=== PATIENT | female | born 1955 | race Caucasian/White ===

== ENCOUNTER 2021-02-24 17:37 | Inpatient (IN) ==
[2021-02-24] MEDS ORDERED: Ondansetron 4 MG/2 ML VIAL IVP PRN (23:26)
[2021-02-24] MEDS ORDERED: Acetaminophen 325 MG TABLET PO PRN (23:26)
[2021-02-24] MEDS ORDERED: Melatonin 3 MG TABLET PO PRN (23:26)
[2021-02-24] MEDS ORDERED: Naloxone 0.4 MG/ML INJ IVP PRN (23:26)
[2021-02-24] MEDS ORDERED: 0.9 % Sodium Chloride 1,000 ML IVC SCH (23:30)
[2021-02-24] MEDS ORDERED: *HR* Heparin 5,000 UNIT/ML VIAL IVP PRN ×2 (23:32)
[2021-02-25] MEDS: Heparin 25,000UNIT/250ML 1/2NS 25,000 UNIT/250 ML IV.SOLN IVC SCH (00:32)
[2021-02-25] MEDS ORDERED: *HR* Dextrose 50 % in Water (Syg) 50 ML SYRINGE IVP PRN (02:37)
[2021-02-25] MEDS ORDERED: Dextrose Gel 15 GM/37.5 ML TUBE PO PRN ×2 (02:37)
[2021-02-25] MEDS ORDERED: D5% in Water 1,000 ML IVC PRN (02:37)
[2021-02-25 02:46] LABS: Basophils % 0.2 %; Eosinophils # 0.1 K/mcL (0.0-0.6); Eosinophils % 0.7 %; Hematocrit 28.4 % (35.3-44.9); Hemoglobin 8.9 g/dL (11.5-15.4); Immature Granulocytes % 1.1 % (0-4); Lymphocytes # 0.8 K/mcL (0.6-4.6); Lymphocytes % 6.7 %; Mean Corpuscular HGB Conc 31.3 g/dL (31.6-35.5); Mean Corpuscular Hemoglobin 30.8 pg (28.0-33.3); Mean Corpuscular Volume 98.3 fL (83.0-100.0); Mean Platelet Volume 10.4 fL (9.4-12.4); Monocytes # 0.7 K/mcL (0.0-1.3); Monocytes % 5.4 %; Neutrophils # 10.6 K/mcL (1.6-8.9); Platelet Count 193 K/mcL (140-400); Red Blood Count 2.89 M/mcL (3.82-4.97); Red Cell Distribution Width 13.5 % (11.5-14.5); Segmented Neutrophils % 85.9 %; White Blood Count 12.3 K/mcL (4.3-11.1)
[2021-02-25 02:49] LABS: INR 1.2; Prothrombin Time 13.6 Seconds (9.4-12.1)
[2021-02-25 02:51] LABS: Activated Partial Thrombo Time 40.4 Seconds (26.0-36.0)
[2021-02-25 02:59] LABS: Calcium 8.7 mg/dL (8.6-10.3); Potassium 4.7 mEq/L (3.5-5.1)
[2021-02-25 03:01] LABS: Albumin/Globulin Ratio 0.9 (1.1-2.2); Bilirubin,Total 0.3 mg/dL (0.3-1.0); Calcium 8.9 mg/dL (8.6-10.3); Globulin 3.3 g/dL (2.4-3.5); Magnesium 1.8 mg/dL (1.6-2.6); Phosphorous 2.7 mg/dL (2.7-4.5); Potassium 4.7 mEq/L (3.5-5.1); Total Protein 6.3 g/dL (6.4-8.9)
[2021-02-25 03:09] LABS: Troponin I 0.33 ng/mL (< 0.04)
[2021-02-25] MEDS ORDERED: Perflutren Lipid Microsphere 1.3 ML in 0.9 % Sodium Chloride 8.7 ML IVP PRN (03:28)
[2021-02-25] MEDS ORDERED: Piperacillin/Tazobactam 3.375 GM in 0.9 % Sodium Chloride Mini Bag 100 ML IVPB SCH (04:00)
[2021-02-25] MEDS: Gabapentin 300 MG CAPSULE PO SCH ×4 (04:11→21:34)
[2021-02-25] MEDS: cefTRIAXone 1,000 MG in 0.9 % Sodium Chloride Mini Bag 100 ML IVPB SCH (05:46)
[2021-02-25] MEDS: Insulin LISPRO 300 UNITS/3 ML VIAL SUBQ SCH ×4 (05:49→21:34)
[2021-02-25] MEDS ORDERED: Ipratropium/Albuterol Neb 3 ML IH PRN (07:31)
[2021-02-25] MEDS: Aspirin 81 MG TAB.CHEW PO SCH (10:31)
[2021-02-25 10:36] LABS: Estimated Average Glucose 292 mg/dl; Hemoglobin A1C 11.8 %
[2021-02-25] MEDS: Doxycycline 100 MG in 0.9 % Sodium Chloride Mini Bag 100 ML IVPB SCH ×2 (12:52→17:36)
[2021-02-25] MEDS: Nystatin POWDER 30 GM BOTTLE TP SCH ×2 (15:17→21:36)
[2021-02-25 17:54] LABS: Bilirubin,Urine Negative (Negative); Blood,Urine Moderate (Negative); Clarity,Urine Clear (Clear); Color,Urine Light-Yellow (Yellow); Glucose,Urine (UA) 30 mg/dL (Normal); Ketones,Urine Negative (Negative); Leukocyte Esterase,Urine Small (Negative); Mucus,Urine Few per lpf (None-Few); Nitrite,Urine Negative (Negative); Protein,Urine 30 mg/dL (Neg-Trace); RBC,Urine TNTC per hpf (0-3); Specific Gravity,Urine 1.014 (1.010-1.025); Urobilinogen,Urine Normal (Normal); WBC,Urine 15-30 per hpf (0-3)
[2021-02-26] MEDS: Heparin 25,000UNIT/250ML 1/2NS 25,000 UNIT/250 ML IV.SOLN IVC SCH (00:22)
[2021-02-26 01:26] LABS: Basophils # 0.1 K/mcL (0.0-0.2); Basophils % 0.5 %; Eosinophils # 0.2 K/mcL (0.0-0.6); Eosinophils % 1.5 %; Hematocrit 30.1 % (35.3-44.9); Hemoglobin 9.5 g/dL (11.5-15.4); Immature Granulocytes % 1.1 % (0-4); Lymphocytes # 1.3 K/mcL (0.6-4.6); Lymphocytes % 12.6 %; Mean Corpuscular HGB Conc 31.6 g/dL (31.6-35.5); Mean Corpuscular Hemoglobin 30.7 pg (28.0-33.3); Mean Corpuscular Volume 97.4 fL (83.0-100.0); Mean Platelet Volume 10.4 fL (9.4-12.4); Monocytes # 0.8 K/mcL (0.0-1.3); Monocytes % 7.6 %; Neutrophils # 7.7 K/mcL (1.6-8.9); Platelet Count 203 K/mcL (140-400); Red Blood Count 3.09 M/mcL (3.82-4.97); Red Cell Distribution Width 13.5 % (11.5-14.5); Segmented Neutrophils % 76.7 %; White Blood Count 10.1 K/mcL (4.3-11.1)
[2021-02-26 01:34] LABS: Chol/HDL Ratio 4.1 (0-4.9)
[2021-02-26 01:36] LABS: Calcium 8.7 mg/dL (8.6-10.3); Potassium 4.3 mEq/L (3.5-5.1)
[2021-02-26] MEDS: cefTRIAXone 1,000 MG in 0.9 % Sodium Chloride Mini Bag 100 ML IVPB SCH (05:03)
[2021-02-26] MEDS: Doxycycline 100 MG in 0.9 % Sodium Chloride Mini Bag 100 ML IVPB SCH ×2 (05:03→17:54)
[2021-02-26] MEDS: Gabapentin 300 MG CAPSULE PO SCH ×3 (08:27→21:59)
[2021-02-26] MEDS: Aspirin 81 MG TAB.CHEW PO SCH (08:27)
[2021-02-26] MEDS: Nystatin POWDER 30 GM BOTTLE TP SCH ×2 (08:28→22:01)
[2021-02-26] MEDS: Insulin LISPRO 300 UNITS/3 ML VIAL SUBQ SCH ×4 (08:32→21:59)
[2021-02-26] MEDS: lisinopriL 20 MG TABLET PO SCH (17:54)
[2021-02-27] MEDS: cefTRIAXone 1,000 MG in 0.9 % Sodium Chloride Mini Bag 100 ML IVPB SCH (05:07)
[2021-02-27 05:15] LABS: Basophils # 0.1 K/mcL (0.0-0.2); Basophils % 0.6 %; Eosinophils # 0.2 K/mcL (0.0-0.6); Eosinophils % 2.1 %; Hematocrit 28.4 % (35.3-44.9); Hemoglobin 9.3 g/dL (11.5-15.4); Immature Granulocytes % 2.1 % (0-4); Lymphocytes # 1.2 K/mcL (0.6-4.6); Lymphocytes % 14.4 %; Mean Corpuscular HGB Conc 32.7 g/dL (31.6-35.5); Mean Corpuscular Hemoglobin 31.6 pg (28.0-33.3); Mean Corpuscular Volume 96.6 fL (83.0-100.0); Mean Platelet Volume 10.2 fL (9.4-12.4); Monocytes # 0.8 K/mcL (0.0-1.3); Neutrophils # 5.8 K/mcL (1.6-8.9); Nucleated Red Blood Cells 0.2 /100 WBC (0); Platelet Count 187 K/mcL (140-400); Red Blood Count 2.94 M/mcL (3.82-4.97); Red Cell Distribution Width 13.6 % (11.5-14.5); Segmented Neutrophils % 70.8 %; White Blood Count 8.2 K/mcL (4.3-11.1)
[2021-02-27 05:32] LABS: Potassium 4.1 mEq/L (3.5-5.1)
[2021-02-27] MEDS: Doxycycline 100 MG in 0.9 % Sodium Chloride Mini Bag 100 ML IVPB SCH (05:58)
[2021-02-27] MEDS: Insulin LISPRO 300 UNITS/3 ML VIAL SUBQ SCH ×2 (09:26→13:22)
[2021-02-27] MEDS: Gabapentin 300 MG CAPSULE PO SCH (09:27)
[2021-02-27] MEDS: lisinopriL 20 MG TABLET PO SCH (09:27)
[2021-02-27] MEDS: Nystatin POWDER 30 GM BOTTLE TP SCH (09:27)
[2021-02-27] MEDS: Aspirin 81 MG TAB.CHEW PO SCH (09:27)
[2021-02-27 11:57] VITALS: BP 166/77; PULSE 72; TEMP 98.3; O2SAT 97
[2021-02-27] MEDS ORDERED: Moderna Covid-19 Vaccine 100MCG/0.5mL IM ONE (12:06)
== END 2021-02-27 17:00 | disposition home or self-care (01) | DRG 871 ==
LOC: 3ANU → SUATTDRO 23:26
PROVIDERS: ADMIT Internal Medicine; ATTEND Internal Medicine

== ENCOUNTER 2021-06-08 12:13 | Observation (INO) ==
[2021-06-08 13:32] LABS: Basophils # 0.1 K/mcL (0.0-0.2); Basophils % 0.9 %; Eosinophils # 0.1 K/mcL (0.0-0.6); Eosinophils % 1.3 %; Hematocrit 39.6 % (35.3-44.9); Hemoglobin 12.7 g/dL (11.5-15.4); Immature Granulocytes % 1.4 % (0-4); Lymphocytes # 1.4 K/mcL (0.6-4.6); Lymphocytes % 15.4 %; Mean Corpuscular HGB Conc 32.1 g/dL (31.6-35.5); Mean Corpuscular Volume 93.4 fL (83.0-100.0); Mean Platelet Volume 9.6 fL (9.4-12.4); Monocytes # 0.5 K/mcL (0.0-1.3); Monocytes % 5.7 %; Neutrophils # 6.8 K/mcL (1.6-8.9); Platelet Count 415 K/mcL (140-400); Red Blood Count 4.24 M/mcL (3.82-4.97); Red Cell Distribution Width 12.6 % (11.5-14.5); Segmented Neutrophils % 75.3 %; White Blood Count 9.1 K/mcL (4.3-11.1)
[2021-06-08 13:48] LABS: Albumin 3.9 g/dL (3.5-5.7); Albumin/Globulin Ratio 0.8 (1.1-2.2); Bilirubin,Direct 0.2 mg/dL (0.0-0.2); Bilirubin,Indirect 0.3 mg/dL (0.0-1.0); Bilirubin,Total 0.5 mg/dL (0.3-1.0); Calcium 10.4 mg/dL (8.6-10.3); Globulin 4.7 g/dL (2.4-3.5); Potassium 4.7 mEq/L (3.5-5.1); Total Protein 8.6 g/dL (6.4-8.9)
[2021-06-08] MEDS ORDERED: 0.9 % Sodium Chloride 1,000 ML IVC ONE (15:52)
[2021-06-08] MEDS ORDERED: Ondansetron 4 MG/2 ML VIAL IVP ONE ×2 (15:52→17:14)
[2021-06-08 16:56] LABS: Influenza A PCR Negative (Negative); Influenza B PCR Negative (Negative); Resp. Syncytial Virus PCR Negative (Negative)
[2021-06-08 16:57] LABS: SARS-CoV-2 by PCR (In House) Negative (Negative)
[2021-06-08] MEDS ORDERED: *HR* FentaNYL (PF) 100 MCG/2 ML VIAL IVP ONE (17:15)
[2021-06-08] MEDS ORDERED: Isovue-370 500 ML BOTTLE IVP ONE (17:23)
[2021-06-08] MEDS ORDERED: *HR* Dextrose 50 % in Water (Syg) 50 ML SYRINGE IVP PRN (21:16)
[2021-06-08] MEDS ORDERED: Dextrose Gel 15 GM/37.5 ML TUBE PO PRN ×2 (21:16)
[2021-06-08] MEDS ORDERED: D5% in Water 1,000 ML IVC PRN (21:16)
[2021-06-08] MEDS ORDERED: Naloxone 0.4 MG/ML INJ IVP PRN (21:20)
[2021-06-08] MEDS: 0.9 % Sodium Chloride 1,000 ML IVC SCH (23:57)
[2021-06-08] MEDS: Insulin LISPRO 300 UNITS/3 ML VIAL SUBQ SCH (23:59)
[2021-06-09] MEDS: Prochlorperazine 10 MG/2 ML VIAL IVP PRN ×2 (00:01→14:45)
[2021-06-09 01:04] LABS: Bilirubin,Urine Negative (Negative); Blood,Urine Negative (Negative); Clarity,Urine Clear (Clear); Color,Urine Light-Yellow (Yellow); Glucose,Urine (UA) 300 mg/dL (Normal); Ketones,Urine Negative (Negative); Leukocyte Esterase,Urine Large (Negative); Mucus,Urine Few per lpf (None-Few); Nitrite,Urine Negative (Negative); PH,Urine 5.5 pH Units (5.0-8.0); Protein,Urine Trace mg/dL (Neg-Trace); Specific Gravity,Urine > 1.030 (1.010-1.025); Squamous Epithelial Cell,Urine Moderate per hpf (None-Few); Urobilinogen,Urine Normal (Normal); WBC,Urine 50-100 per hpf (0-3)
[2021-06-09] MEDS: Insulin LISPRO 300 UNITS/3 ML VIAL SUBQ SCH ×3 (04:58→16:59)
[2021-06-09 06:49] LABS: Hematocrit 33.9 % (35.3-44.9); Mean Corpuscular HGB Conc 32.7 g/dL (31.6-35.5); Mean Corpuscular Hemoglobin 30.7 pg (28.0-33.3); Mean Corpuscular Volume 93.9 fL (83.0-100.0); Mean Platelet Volume 9.9 fL (9.4-12.4); Platelet Count 306 K/mcL (140-400); Red Blood Count 3.61 M/mcL (3.82-4.97); Red Cell Distribution Width 12.4 % (11.5-14.5)
[2021-06-09 06:57] LABS: Hemoglobin 11.1 g/dL (11.5-15.4)
[2021-06-09 07:08] LABS: BUN/Creatinine Ratio 21 (6-26); Blood Urea Nitrogen 30 mg/dL (8-23); Calcium 9.7 mg/dL (8.6-10.3); Carbon Dioxide 24 mEq/L (23-29); Chloride 100 mEq/L (98-107); Chol/HDL Ratio 6.6 (0-4.9); Cholesterol 151 mg/dL (< 200); Glucose 260 mg/dL (70-105); HDL Cholesterol 23 mg/dL (40-59); Iron 84 mcg/dL (50-170); LDL Cholesterol,Calculated 91 mg/dL (< 100); Magnesium 1.4 mg/dL (1.6-2.6); Osmolality,Calculated 297 (280-300); Potassium 4.1 mEq/L (3.5-5.1); Sodium 136 mEq/L (136-145); Triglycerides 187 mg/dL (< 150); Troponin I < 0.03 ng/mL (< 0.04); Uric Acid 10.1 mg/dL (2.3-7.6); eGFR For African Americans 44 (> 60); eGFR For Non-African Americans 36 (> 60)
[2021-06-09] MEDS ORDERED: *HR* Labetalol 20 MG/4 ML SYRINGE IVP PRN (07:30)
[2021-06-09] MEDS ORDERED: *HR* Promethazine 25 MG/ML VIAL IM ONE (08:19)
[2021-06-09] MEDS: 0.9 % Sodium Chloride 1,000 ML IVC SCH (08:43)
[2021-06-09 09:04] LABS: Estimated Average Glucose 237 mg/dl; Hemoglobin A1C 9.9 %
[2021-06-09 09:56] LABS: Ferritin 699 ng/mL (10-120)
[2021-06-09] MEDS ORDERED: *HR* Promethazine 25 MG/ML VIAL IM PRN (21:02)
[2021-06-10] MEDS: Insulin LISPRO 300 UNITS/3 ML VIAL SUBQ SCH ×4 (01:30→17:51)
[2021-06-10 01:34] LABS: Hematocrit 33.2 % (35.3-44.9); Hemoglobin 10.4 g/dL (11.5-15.4); Mean Corpuscular HGB Conc 31.3 g/dL (31.6-35.5); Mean Corpuscular Hemoglobin 29.6 pg (28.0-33.3); Mean Corpuscular Volume 94.6 fL (83.0-100.0); Mean Platelet Volume 9.6 fL (9.4-12.4); Platelet Count 272 K/mcL (140-400); Red Blood Count 3.51 M/mcL (3.82-4.97); Red Cell Distribution Width 12.7 % (11.5-14.5); White Blood Count 8.1 K/mcL (4.3-11.1)
[2021-06-10 01:43] LABS: Calcium 9.3 mg/dL (8.6-10.3); Potassium 4.2 mEq/L (3.5-5.1)
[2021-06-10] MEDS: Prochlorperazine 10 MG/2 ML VIAL IVP PRN (02:59)
[2021-06-10] MEDS ORDERED: *HR* Metoprolol 5 MG/5 ML VIAL IVP ONE (07:29)
[2021-06-10] MEDS ORDERED: *HR* Propofol 200 MG/20 ML VIAL IVP ONE (07:34)
[2021-06-10] MEDS ORDERED: *HR* FentaNYL (PF) 100 MCG/2 ML VIAL ONE (07:34)
[2021-06-10] MEDS ORDERED: *HR* Midazolam HCl 2 MG/2 ML VIAL ONE (07:34)
[2021-06-10] MEDS ORDERED: Isovue-300 50ML VIAL ONE (07:35)
[2021-06-10] MEDS ORDERED: Ondansetron 4 MG/2 ML VIAL IVP PRN (07:46)
[2021-06-10] MEDS ORDERED: *HR* OxyCODONE Immed Rel 5 MG TABLET PO PRN (07:46)
[2021-06-10] MEDS ORDERED: *HR* HYDROmorphone PF 0.5 MG/0.5 ML SYRINGE IVP PRN (07:46)
[2021-06-10] MEDS ORDERED: Ondansetron 4 MG/2 ML VIAL ONE (07:58)
[2021-06-10] MEDS ORDERED: Lidocaine -MPF 2% 5 ML VIAL ONE (07:58)
[2021-06-10] MEDS ORDERED: *HR* Rocuronium Bromide 50 MG/5 ML VIAL ONE (07:58)
[2021-06-10] MEDS ORDERED: Lidocaine HCL 4 ML Topical Solution (Laryng-O-Jet Kit Sterile Pak) TP ONE (07:58)
[2021-06-10] MEDS ORDERED: Acetaminophen IV 1,000 MG/100 ML BAG IVPB ONE (08:18)
[2021-06-10] MEDS ORDERED: cefTRIAXone 1,000 MG in Water for inj. (sterile) 10 ML IVP SCH (09:00)
[2021-06-10] MEDS ORDERED: Sugammadex Sodium 200 MG/2 ML VIAL IV ONE (09:00)
[2021-06-10] MEDS ORDERED: Prochlorperazine 10 MG/2 ML VIAL IVP PRN (10:29)
[2021-06-10] MEDS ORDERED: Dextrose Gel 15 GM/37.5 ML TUBE PO PRN ×2 (10:29)
[2021-06-10] MEDS ORDERED: *HR* Promethazine 25 MG/ML VIAL IM PRN (10:29)
[2021-06-10] MEDS ORDERED: *HR* Labetalol 20 MG/4 ML SYRINGE IVP PRN (10:29)
[2021-06-10] MEDS ORDERED: D5% in Water 1,000 ML IVC PRN (10:29)
[2021-06-10] MEDS ORDERED: *HR* OxyCODONE/APAP 5/325 TABLET PO PRN (10:29)
[2021-06-10] MEDS ORDERED: *HR* Dextrose 50 % in Water (Syg) 50 ML SYRINGE IVP PRN (10:29)
[2021-06-10] MEDS ORDERED: Naloxone 0.4 MG/ML INJ IVP PRN (10:29)
[2021-06-10] MEDS: Gabapentin 400 MG CAPSULE PO SCH ×2 (13:59→21:59)
[2021-06-10] MEDS ORDERED: Morphine Sulfate 2 MG/ML SYRINGE IVP ONE (16:30)
[2021-06-11] MEDS: Insulin LISPRO 300 UNITS/3 ML VIAL SUBQ SCH ×3 (01:14→13:01)
[2021-06-11 02:58] VITALS: O2SAT 97
[2021-06-11] MEDS: Gabapentin 400 MG CAPSULE PO SCH ×2 (08:02→15:35)
[2021-06-11] MEDS ORDERED: Insulin Degludec [Tresiba Flextouch U-100] SQ SCH (09:00)
[2021-06-11] MEDS ORDERED: Insulin DETEMIR 100 UNIT/ML X5UNITS SUBQ SCH (09:00)
[2021-06-11] MEDS ORDERED: cefTRIAXone 1,000 MG in Water for inj. (sterile) 10 ML IVP SCH (09:00)
[2021-06-11] MEDS ORDERED: Colchicine 0.6 MG TABLET PO SCH (09:00)
[2021-06-11] MEDS ORDERED: *HR* GlipiZIDE XL (24 HR) 10 MG TABLET PO SCH (09:00)
[2021-06-11] MEDS ORDERED: *HR* HYDROcodone/Acet 5/325 mg TABLET PO PRN (09:56)
[2021-06-11] MEDS ORDERED: Acetaminophen 325 MG TABLET PO PRN (09:57)
[2021-06-11 11:48] VITALS: BP 135/73; PULSE 69; TEMP 97.8
[2021-06-11 12:28] LABS: Basophils % 0.4 %; Eosinophils # 0.1 K/mcL (0.0-0.6); Eosinophils % 0.7 %; Hematocrit 32.7 % (35.3-44.9); Hemoglobin 10.3 g/dL (11.5-15.4); Immature Granulocytes % 0.7 % (0-4); Lymphocytes # 1.8 K/mcL (0.6-4.6); Lymphocytes % 16.2 %; Mean Corpuscular HGB Conc 31.5 g/dL (31.6-35.5); Mean Corpuscular Hemoglobin 29.8 pg (28.0-33.3); Mean Corpuscular Volume 94.5 fL (83.0-100.0); Mean Platelet Volume 9.7 fL (9.4-12.4); Monocytes # 0.7 K/mcL (0.0-1.3); Monocytes % 6.1 %; Neutrophils # 8.4 K/mcL (1.6-8.9); Platelet Count 277 K/mcL (140-400); Red Blood Count 3.46 M/mcL (3.82-4.97); Red Cell Distribution Width 12.9 % (11.5-14.5); Segmented Neutrophils % 75.9 %; White Blood Count 11.1 K/mcL (4.3-11.1)
[2021-06-13 11:00] LABS: % Iron Saturation 29 % (15-50); Transferrin 208 mg/dL (200-400)
[2021-06-14 21:41] LABS: Vitamin B12 558 pg/mL (250-1100)
[2021-06-14 22:42] LABS: Folate > 22.3 ng/mL (3.0-16.0)
== END 2021-06-11 15:39 | disposition home or self-care (01) ==
LOC: EMEROOARM 12:13 → 3BNU 12:13
PROVIDERS: ADMIT Family Medicine; ATTEND Family Medicine